=== PATIENT | female | born 1940 | race Caucasian/White ===

== ENCOUNTER 2018-04-23 08:12 | Inpatient (IN) | payer BC ==
[2018-04-18 09:19] LABS: ABSOLUTE BASOPHILS 0.1 thou/uL (0.0-0.2); ABSOLUTE EOSINOPHILS 0.1 thou/uL (0.0-0.7); ABSOLUTE MONOCYTES 0.5 thou/uL (0.0-1.2); ABSOLUTE NEUTROPHILS 5.4 thou/uL (1.6-8.1); BASOPHILS 1.2 %; EOSINOPHILS 1.3 %; HEMATOCRIT 38.1 % (37.0-47.0); HEMOGLOBIN 12.6 gm/dL (12.0-15.0); LYMPHOCYTES 24.3 %; MCH 31.1 pg (26.0-34.0); MCHC 33.1 g/dL (28.0-37.0); MCV 93.9 fL (80.0-100.0); MONOCYTES 6.7 %; MPV 9.6 fl. (7.2-11.1); NUCLEATED RBCS 0 /100WBC; PLATELET COUNT* 193 thou/uL (150-400); POLYS 66.5 %; RBC 4.05 mil/uL (4.20-5.00); RDW-CV 14.4 % (10.5-14.5); WBC 8.1 thou/uL (4.0-11.0)
[2018-04-18 09:33] LABS: APTT 29.1 Seconds (25.0-31.3); PROTIME 10.1 Seconds (9.20-11.50)
[2018-04-18 09:51] LABS: ALBUMIN 3.2 g/dL (3.4-5.0); CALCIUM 8.2 mg/dL (8.5-10.1); CREATININE 0.8 mg/dL (0.6-1.3); POTASSIUM 3.9 mmol/L (3.5-5.1); TOTAL BILIRUBIN 0.4 mg/dL (<0.1-1.0); TOTAL PROTEIN 6.4 g/dL (6.4-8.2)
[2018-04-18 10:15] LABS: ESR (SEDRATE) 6 mm/hr (0-30)
--- NOTE | 2018-04-18 16:47 | EKG ---
[place] [address] ELECTROCARDIOGRAM REPORT Name: ABDOUL WIGGINS Room: [facility]#: [id number] Admission: Attend Phys: Sree Thomas, Discharge: Date of : 36 Report #: [id number] THIS REPORT FOR: //name// [facility] Test Date: 2018-04-18 Test Time: 09:29:28 Pat Name: ABDOUL WIGGINS Department: Room: Gender: F Etl Programmer: : 1940 Requested By: Sree Thomas Order Number: [id number] Reading MD: Wilfredo Lucero Measurements Intervals Navarro Rate: 72 P: 61 MI: 125 QRS: 74 QRSD: 104 T: 43 QT: 406 QTc: 445 Interpretive Statements Sinus rhythm Baseline wander in lead(s) II,III,aVF,V1 Compared to ECG 03/17/2011 10:18:44 Sinus tachycardia no longer present ST (T wave) deviation no longer present Electronically Signed On 04-18-2018 16:47:41 CDT by Wilfredo Lucero [email or web address] <ELECTRONICALLY SIGNED> By: Wilfredo Lucero MD, [facility] 04/18/18 1647 0929 0929 Wilfredo Lucero MD, [facility] /EPI
[~2018-04-23] VITALS: Ht 162.6 cm; Wt 73.5 kg
[~2018-04-23 08:12] MED LIST: ALEVE220 MG PO; ALOE VERA PO; AMBEREN PO; ASPIR 8181 MG PO; ASPIRIN EC81 M1 PO; ATORVASTATIN CA40 MG PO; CALCIUM 600 +1 EAC5 PO; CHOLESTYRAMINE P4 GM PO; CIPROFLOXACIN500 M1; CLARITIN10 MG PO; CO Q-10100 MG PO; DAIRY RELIE9000 UNI1 PO; ENOXAPARIN30 MG/0.3; EVISTA PO; FERROUS SULFAT325 M1; FIBER CHOICE1 EACH PO; FISH OIL 1,001000 M1 PO; GAS RELIEF80 MG PO; LEVOXYL88 MCG PO; LEVSIN PO; LISINOPRIL10 MG PO; LOPERAMIDE 2 MG2 M1 PO; MAGNESIUM250 M1 PO; MOBIC15 MG PO; NORCO 5-325 TA1 EACH; OXYCODONE HCL5 M1; PROBIOTIC1 EACH PO; SYNTHROID100 MC1 PO; VITAMIN D-32000 UNIT PO; ZOCOR 20 MG TAB20 M1 PO
[2018-04-23 09:33] VITALS: BP 143/69
--- NOTE | 2018-04-23 15:09 | NUR ---
ASSUMED PT CARE @ 1242. PT ALERT AND ORIENTED X 4. DENIES NAUSEA OR PAIN. IV LEFT HAND PATENT. MEPILEX DRESSING DRY/INTACT. BILAT TEDS IN PLACE. PT VOIDED UPON ARRIVAL ON UNIT= 300CC. DAUGHTER AT BEDSIDE FOR A COUPLE HOURS IN EARLY AFTERNOON. WILL USE CALL LIGHT FOR ASSISTANCE. CALL LIGHT WITHIN REACH. NURSING WILL CONTINUE TO MONITOR.
[2018-04-23 16:33] VITALS: BP 134/63
--- NOTE | 2018-04-23 18:50 | NUR ---
PT ALERT AND ORIENTED X 4. PT CONTINUES TO DENY ANY NAUSEA OR PAIN. ICE PACK IN USE. MEPILEX DRESSING DRY/INTACT. IVF INFUSING AT 75 MLS/HR. BILAT TEDS IN PLACE. HOURLY ROUNDS MAINTAINED. WILL USE CALL LIGHT FOR ASSISTANCE. CALL LIGHT WITHIN REACH. NURSING TO CONTINUE TO MONITOR.
[2018-04-23 20:00] VITALS: BP 136/70
[2018-04-24] VITALS (8 sets, daily range): BP systolic 94–113; BP diastolic 46–63
[2018-04-24 04:12] LABS: HEMOGLOBIN 10.2 gm/dL (12.0-15.0)
--- NOTE | 2018-04-24 04:56 | NUR ---
PATIENT SLEPT WELL DURING THIS SHIFT. PT USES CALL LIGHT APPROPRIATELY FOR BEDPAN. PT ABLE TO RAISE HIPS TO SLIDE BEDPAN UNDER HERSELF. PT VOIDS CLEAR YELLOW URINE. PT WITH FLUIDS INFUSING PER DR ORDER. PT WITH O2 @ 2LITERS PER NASAL CANNULA AND CAPNO IN PLACE. CAPNO DID NOT ALARM DURING THIS SHIFT. PT WITH MEPILEX ON RT KNEE. DSG C/D/I. FREQUENTLY USED ITEMS AND CALL LIGHT WITHN REACH. SIDERAILS UPX4 AND BED ALARM ON. WILL CONTINUE TO MONITOR.
[2018-04-24] MEDS ORDERED: COLACE100 MG PO (08:09)
--- NOTE | 2018-04-24 09:02 | NUR ---
RECIEVED O.T. ORDER. WILL DEFER TO P.T. AT THIS TIME. PLEASE ORDER FURTHER O.T. SERVICES IF NEEDED.
[2018-04-24] MEDS ORDERED: ROXICODONE5 M2 PO (10:38)
[2018-04-24] MEDS ORDERED: ELIQUIS2.5 MG PO (10:38)
[2018-04-24] MEDS ORDERED: NORCO 5-325 TA1 EACH PO (10:39)
[2018-04-24] MEDS ORDERED: ASPIRIN325 PO (10:44)
--- NOTE | 2018-04-24 13:06 | OP ---
[address] [address] OPERATIVE REPORT Name: ABDOUL WIGGINS Room: [address] IN M.R.#: [id number] Admission: 04/23/18 Attend Phys: Kristyn Donnelly Discharge: Date of : 36 Report #: [id number] THIS REPORT FOR: //name// CC: Nguyễn Slaughter DATE OF SERVICE: 04/23/2018 PREOPERATIVE DIAGNOSIS: Primary degenerative joint disease, right knee. POSTOPERATIVE DIAGNOSIS: Primary degenerative joint disease, right knee. OPERATION PERFORMED: Right total knee arthroplasty. SURGEON: Sree Thomas DO. SERVICE OBSERVER: Mayank Ang DO. SECOND LAW TUTOR: Michael Martinez DO. ANESTHESIA: General. GROSS PATHOLOGY: This patient has advanced degenerative joint disease to the right knee consistent with x-rays from my office. She has been treated conservatively for years and wished to proceed with the surgery. Her primary first assistance was utilized by Dr. Ang because of the complexity of the arthritis, because of the patient's osteoporosis, needing extra care and retraction not to damage tissue. It was also noted the patient had a markedly dished-out patella, which was not thick enough for resurfacing but an osteotomy was performed on the patella, smoothing it out. IMPLANTS UTILIZED: Bertram Persona tibia, size E; femur size 7 standard. PROCEDURE: The patient was brought to the operating room where a general anesthetic was administered. Preoperative antibiotics were given. Hibiclens scrub and a ChloraPrep, prep were done to the right leg. The patient was draped in a sterile manner. An incision was made from the superior pole of the patella to the tibial tuberosity, it was carried down through the skin and subcuticular material by sharp dissection. A medial arthrotomy was performed, patella dislocated laterally. Osteophytes were trimmed accordingly. Starting holes made in the distal femur. The intramedullary guide was inserted into the distal femur. The distal femur cutting block was placed into this. The pins kept the block in place, the distal femur was cut with a good cut. Attention was then turned to the tibia utilizing the extramedullary system, adjusted appropriately, block pinned in place. The proximal tibia was cut[id number] OPERATIVE REPORT Name: ABDOUL WIGGINS Room: [address] [facility].#: [id number] Admission: 04/23/18 Attend Phys: Kristyn Donnelly Discharge: Date of : 36 Report #: [id number] the cuts confirming that the implants would fit. Attention was then turned back to the femur where it was sized, cutting block was then placed in position. The capture cuts were completed. Attention was turned to the tibia where the base plate was placed on the tibia, held in place with pins. The articular surface was placed in the base plate, components fit well. The patella again was visualized due to its lack of thickness that would hold the patella. It was smoothed out with an osteotomy cut, which was noted to make this fit nicely. The components were checked, range of motion was good and the components were stable. The femoral component was removed. The hole was placed into the tibia and the proximal tibia was also broached. The holes were drilled into the femur. The trial components were removed. Utilizing bone material, bone plugs were placed in the distal femur. The tourniquet was inflated to 300 mmHg, pulsatile lavage was utilized to clean the bony surfaces. Cement was mixed. The components were cemented into place, oversized spacer was placed in position for further compression. Cement was removed and after final cementing had hardened, any excess further cement was removed. The articular surface of 11 mm was noted to be the best fit. The articular surface size 11 MC was utilized. Snap click was noted confirming its seating. Again, the knee was taken through range of motion, which was stable and components fit well. The knee was then Betadine cleansed and allowed to sit. This solution was then removed. The knee again was irrigated and then the TXA was placed in the knee. The tourniquet was deflated to 0. Hemostasis was maintained. The medial arthrotomy was then closed with the corner stitch with #1 TiCron and the remainder with #1 Vicryl. Subcutaneous with 2-0 Vicryl; due to the thin skin, nash were utilized on the skin. Estimated blood loss was 150 mL. The instrument and sponge count reported as correct and the knee was thoroughly irrigated through the procedure. <ELECTRONICALLY SIGNED> By: Mayank Ang DO 04/24/18 1306 1126 [id number] Thomas DO /prasad
--- NOTE | 2018-04-24 13:56 | NUR ---
I have reviewed and agree with student nurse Sindi Franco's reassessment with the additional finding: right knee surgical dressing dry and intact, no drainage noted.
--- NOTE | 2018-04-24 16:55 | NUR ---
ASSUMED CARE OF PATIENT AFTER MORNING REPORT AT APPROX 0730. ALERT AND ORIENTED X4. ASSESSMENT COMPLETED AND CHARTED. VSS ON 2 LITERS 02, TITRATED TO ROOM AIR AND VS REMAIN STABLE. NO COMPLAINTS OF NAUSEA OR SOA. FLUIDS INFUSED ORDERED. PATIENT BP WAS 66/33, GAVE FLUID BOLUS AND BP STABALIZED TO 108/49. PAIN HAS BEEN MANAGED WITH MEDICATION. WORKLED WELL WITH THERAPY BUT PATIENT STATED SHE WAS NOT COMFORTABLE GOING HOME TODAY, WILL REASSESS DISCHARGE DISPOSITION IN THE AM. HOURLY ROUNDS MAINTAINED, CALL LIGHT WITHIN REACH, NURSING WILL CONTNIUE TO MONITOR.
[2018-04-25 00:30] VITALS: BP 118/57
[2018-04-25 03:50] VITALS: BP 109/52
[2018-04-25 04:11] LABS: HEMATOCRIT 27.9 % (37.0-47.0); HEMOGLOBIN 9.3 gm/dL (12.0-15.0)
--- NOTE | 2018-04-25 05:24 | NUR ---
PATIENT ALERT AND ORIENTED X 4. VITALS STABLE. RA. RIGHT KNEE DRESSING C/D/I. ICE PACK IN PLACE. PAIN CONTROLLED WITH PO MEDICATION. UP WITH ASSIST X 1 TO BSC. IV PATENT, SALINE LOCKED. PROGRESSING WELL TOWARD DISCHARGE GOALS. HOURLY ROUNDS. BED ALARM IN USE. NURSING WILL CONTINUE TO MONITOR.
[2018-04-25 07:50] VITALS: BP 102/58
--- NOTE | 2018-04-25 11:19 | NUR ---
CALLED IN PRESCRIPTION FOR ELIQUIS WRITTEN,TO [facility] IN [phone]. WILL CALL BACK IN ONE HR TO CHECK COPAY.
--- NOTE | 2018-04-25 11:46 | NUR ---
PT.LIVES WITH HER . HE CANNOT HELP HER PHYSICALLY BUT DAUGHTER IS COMING TO STAY WITH THEM 'FOR LONG WE NEED HER.' PT.IS NORMALLY INDEPENDENT AT HOME. HAS A WALKER TO USE. SHE WOULD LIKE TO DO HOME HEALTH FOR THE 2 WEEKS BEFORE SEEING THE DR. SHE WOULD LIKE TO USE [facility] SHE USED THEM BEFORE. SPOKE WITH [facility]. SHE SAID THEY COULD ACCEPT PT. FAXED REFERRAL AND DISCHARGE ORDERS TO HER [phone]. PT.PLANNING ON DISCHARGE AFTER AFTERNOON THERAPY.
[2018-04-25 11:53] VITALS: BP 96/50
--- NOTE | 2018-04-25 12:31 | NUR ---
PT.'S COPAY FOR ELIQUIS IS $20.30. WILL INFORM PT.
--- NOTE | 2018-04-25 15:16 | NUR ---
ASSUMED CARE OF PATIENT AFTER MORNING REPORT AT APPROX 0730. ALERT AND ORIENTED X4. ASSESSMENT COMPLETED AND CHARTED. VSS ON ROOM AIR. NO COMPLAINTS OF NAUSEA OR SOA. PAIN HAS BEEN MANAGED WITH MEDICATION. PATIENT WORKED WELL WITH THERAPIES TODAY. PATIENT DISCHARGED AT 1500 WITH ALL PERSONAL BELONGINGS, PRESCRIPTIONS, AND DISCHARGE INFORMATION.
== END 2018-04-25 15:00 | disposition home health service (06) | DRG 470 ==
LOC: M.SUR 08:12 → M.ORTHSURG 11:42 → M.TBA 11:42 → M.ORTHSURG 12:13 → M.SUR 12:40 → M.ORTHSURG 04-25 15:00
PROVIDERS: Orthopaedic Surgery; ADMIT Internal Medicine
PROC: 0SRC0J9 Replacement of Right Knee Joint with Synthetic Substitute, Cemented, Open Approach (ICD-10-PCS; principal; 2018-04-23)
DX: M17.11 Unilateral primary osteoarthritis, right knee (principal); E78.5 Hyperlipidemia, unspecified; Z96.652 Presence of left artificial knee joint; E03.9 Hypothyroidism, unspecified; I95.81 Postprocedural hypotension; M81.0 Age-related osteoporosis without current pathological fracture; Z98.49 Cataract extraction status, unspecified eye; Z82.49 Family history of ischemic heart disease and other diseases of the circulatory system; Z87.891 Personal history of nicotine dependence; Z86.73 Personal history of transient ischemic attack (TIA), and cerebral infarction without residual deficits; Z90.49 Acquired absence of other specified parts of digestive tract; Z79.899 Other long term (current) drug therapy